=== PATIENT | female | born 1965 | race Caucasian/White ===

== ENCOUNTER → 2018-06-20 | Outpatient (CLI) | payer OTHER ==
[~2018-06-20] MED LIST: Curcumin1 GM PO; KRILL OIL500 MG PO; [UNRECOGNIZED DRUG - OTHER] PO
[2018-06-20 12:40] LABS: BASOPHILS ABSOLUTE AUTO 0.03 K/mm3 (0.00-0.23); BASOPHILS PERCENT AUTO 1 % (0-2); EOSINOPHILS ABSOLUTE AUTO 0.04 K/mm3 (0.00-0.68); EOSINOPHILS PERCENT AUTO 1 % (0-6); Hematocrit 40.6 % (33.0-51.0); Hemoglobin 13.6 g/dL (11.5-16.0); IMMATURE GRAN ABSOLUTE AUTO 0.01 K/mm3 (0.00-0.10); IMMATURE GRAN PERCENT AUTO 0 % (0-1); LYMPHOCYTES ABSOLUTE AUTO 0.53 K/mm3 (0.84-5.20); LYMPHOCYTES PERCENT AUTO 17 % (21-46); MONOCYTES ABSOLUTE AUTO 0.32 K/mm3 (0.16-1.47); MONOCYTES PERCENT AUTO 11 % (4-13); Mean Corpuscular HGB 33.2 pg (26.0-34.0); Mean Corpuscular HGB Conc 33.5 g/dL (31.5-36.5); Mean Corpuscular Volume 99 fL (80-100); Mean Platelet Volume 9.9 fL (9.1-12.4); NEUTROPHILS ABSOLUTE AUTO 2.11 K/mm3 (1.96-9.15); NEUTROPHILS PERCENT AUTO 70 % (41-73); Platelet Count 229 K/mm3 (150-400); RDW Coefficient Variation 13.1 % (11.7-14.2); RDW Standard Deviation 47.5 fL (35.1-46.3); White Blood Cell Count 3.04 K/mm3 (4.00-11.30)
[2018-06-20 13:06] LABS: Alanine Aminotransfer (ALT/SGP 61 U/L (12-78); Albumin, Blood 3.8 g/dL (3.4-5.0); Albumin/Globulin Ratio 1.1 (0.8-1.8); Alk Phos 179 U/L (50-136); Amylase, Blood 46 U/L (25-115); Anion Gap 9 mmol/L (6-16); Aspartate Aminotrans (AST/SGOT 63 U/L (12-37); Bilirubin, Total 0.6 mg/dL (0.1-1.0); Blood Urea Nitrogen 8 mg/dL (8-24); Bun/Creatinine Ratio 12.4 (12.0-20.0); CO2, Blood 26 mmol/L (21-32); Calcium, Blood 9.1 mg/dL (8.5-10.1); Chloride, Blood 105 mmol/L (98-108); Creatinine, Blood 0.65 mg/dL (0.40-1.00); Globulin, Blood 3.4 g/dL (2.2-4.0); Glomerular Filtration Rate >60 (60-); Glucose, Blood 91 mg/dL (70-99); Sodium, Blood 140 mmol/L (136-145); Total Protein, Blood 7.2 g/dL (6.4-8.2)
== END ==
LOC: LAB 12:22 → LAB SHORT 12:22
DX: Z13.0 Encounter for screening for diseases of the blood and blood-forming organs and certain disorders involving the immune mechanism (principal); Z13.1 Encounter for screening for diabetes mellitus; R10.12 Left upper quadrant pain
CPT/HCPCS: 80053; 82150; 83690; 85025

== ENCOUNTER 2018-08-04 12:14 | Emergency (ER) | payer SELFPAY ==
[~2018-08-04] VITALS: Ht 162.6 cm; Wt 80.3 kg
[2018-08-04 12:46] LABS: BASOPHILS ABSOLUTE AUTO 0.03 K/mm3 (0.00-0.23); BASOPHILS PERCENT AUTO 0 % (0-2); EOSINOPHILS ABSOLUTE AUTO 0.01 K/mm3 (0.00-0.68); EOSINOPHILS PERCENT AUTO 0 % (0-6); Hematocrit 38.6 % (33.0-51.0); Hemoglobin 13.1 g/dL (11.5-16.0); IMMATURE GRAN ABSOLUTE AUTO 0.04 K/mm3 (0.00-0.10); IMMATURE GRAN PERCENT AUTO 1 % (0-1); LYMPHOCYTES ABSOLUTE AUTO 0.73 K/mm3 (0.84-5.20); LYMPHOCYTES PERCENT AUTO 11 % (21-46); MONOCYTES ABSOLUTE AUTO 0.63 K/mm3 (0.16-1.47); MONOCYTES PERCENT AUTO 9 % (4-13); Mean Corpuscular HGB 33.2 pg (26.0-34.0); Mean Corpuscular HGB Conc 33.9 g/dL (31.5-36.5); Mean Corpuscular Volume 98 fL (80-100); Mean Platelet Volume 9.1 fL (9.1-12.4); NEUTROPHILS ABSOLUTE AUTO 5.36 K/mm3 (1.96-9.15); NEUTROPHILS PERCENT AUTO 79 % (41-73); Platelet Count 266 K/mm3 (150-400); RDW Coefficient Variation 12.5 % (11.7-14.2); RDW Standard Deviation 45.1 fL (35.1-46.3); Red Blood Cell Count 3.94 M/mm3 (3.80-5.20)
[2018-08-04 13:13] LABS: Alanine Aminotransfer (ALT/SGP 53 U/L (12-78); Albumin, Blood 3.7 g/dL (3.4-5.0); Albumin/Globulin Ratio 1.1 (0.8-1.8); Alk Phos 306 U/L (50-136); Anion Gap 14 mmol/L (6-16); Aspartate Aminotrans (AST/SGOT 86 U/L (12-37); Bilirubin, Total 1.4 mg/dL (0.1-1.0); Blood Urea Nitrogen 11 mg/dL (8-24); CO2, Blood 23 mmol/L (21-32); Calcium, Blood 9.2 mg/dL (8.5-10.1); Chloride, Blood 102 mmol/L (98-108); Globulin, Blood 3.5 g/dL (2.2-4.0); Glomerular Filtration Rate >60 (60-); Glucose, Blood 88 mg/dL (70-99); Potassium, Blood 3.7 mmol/L (3.5-5.5); Sodium, Blood 139 mmol/L (136-145); Total Protein, Blood 7.2 g/dL (6.4-8.2); Troponin I <0.015 ng/mL (0.000-0.040)
[2018-08-04] MEDS ORDERED: CYCL10 PO (15:28)
[2018-08-04 16:58] LABS: Source, Urine Clean Catch
[2018-08-04 17:20] LABS: Bilirubin, Urine Neg (Neg); Blood, Urine Neg (Neg); Glucose Qualitative, Urine Neg (Neg); Ketones, Urine 2+ (Neg); Leukocyte Esterase, Urine Neg (Neg); Nitrite, Urine Neg (Neg); Protein, Urine Neg (Neg); Urobilinogen, Urine 1+ (Normal)
[2018-08-04 17:32] LABS: Color, Urine Yellow (P-Yellow)
[2018-08-04 17:33] LABS: Appearance, Urine Clear (Clear)
== END 2018-08-04 18:35 | disposition home or self-care (01) ==
LOC: ER 12:14
PROVIDERS: Emergency Medicine
DX: R10.13 Epigastric pain (principal); R55 Syncope and collapse; M54.5 Low back pain; Z88.1 Allergy status to other antibiotic agents; Z88.5 Allergy status to narcotic agent; Z88.6 Allergy status to analgesic agent; Z88.8 Allergy status to other drugs, medicaments and biological substances
CPT/HCPCS: 36415; 72100; 76705; 80053; 81003; 84484; 85025; 93005; 93010; 96361; 96374; 99284-25; J1885; J7030

== ENCOUNTER → 2019-03-07 | Outpatient (CLI) | payer OTHER ==
[~2019-03-07] MED LIST changes: +CYCL10 PO; +LETR2.5; +Norco 5-325 Ta1 EACH PO; +OXYC10ER PO
[2019-03-07 10:54] LABS: Alanine Aminotransfer (ALT/SGP 109 U/L (12-78); Albumin, Blood 3.9 g/dL (3.4-5.0); Albumin/Globulin Ratio 1.3 (0.8-1.8); Alk Phos 149 U/L (50-136); Anion Gap 8 mmol/L (6-16); Aspartate Aminotrans (AST/SGOT 127 U/L (12-37); Bilirubin, Total 0.6 mg/dL (0.1-1.0); Blood Urea Nitrogen 7 mg/dL (8-24); Bun/Creatinine Ratio 14.6 (12.0-20.0); CO2, Blood 26 mmol/L (21-32); Calcium, Blood 8.4 mg/dL (8.5-10.1); Chloride, Blood 108 mmol/L (98-108); Creatinine, Blood 0.48 mg/dL (0.40-1.00); Globulin, Blood 2.9 g/dL (2.2-4.0); Glomerular Filtration Rate >60 (60-); Glucose, Blood 89 mg/dL (70-99); Sodium, Blood 142 mmol/L (136-145); Total Protein, Blood 6.8 g/dL (6.4-8.2)
== END | disposition home or self-care (01) ==
LOC: LAB SHORT 10:17 → LAB 10:17
PROVIDERS: Internal Medicine Hematology & Oncology
DX: C50.412 Malignant neoplasm of upper-outer quadrant of left female breast (principal)
CPT/HCPCS: 80053

== ENCOUNTER → 2019-04-07 | Outpatient (CLI) | payer OTHER ==
[2019-04-07 11:13] LABS: Alanine Aminotransfer (ALT/SGP 157 U/L (12-78); Albumin, Blood 3.7 g/dL (3.4-5.0); Albumin/Globulin Ratio 1.3 (0.8-1.8); Alk Phos 137 U/L (50-136); Anion Gap 11 mmol/L (6-16); Aspartate Aminotrans (AST/SGOT 161 U/L (12-37); Bilirubin, Total 0.6 mg/dL (0.1-1.0); Blood Urea Nitrogen 6 mg/dL (8-24); Bun/Creatinine Ratio 13.4 (12.0-20.0); CO2, Blood 25 mmol/L (21-32); Chloride, Blood 107 mmol/L (98-108); Creatinine, Blood 0.45 mg/dL (0.40-1.00); Globulin, Blood 2.9 g/dL (2.2-4.0); Glomerular Filtration Rate >60 (60-); Glucose, Blood 82 mg/dL (70-99); Potassium, Blood 3.8 mmol/L (3.5-5.5); Sodium, Blood 143 mmol/L (136-145); Total Protein, Blood 6.6 g/dL (6.4-8.2)
== END | disposition home or self-care (01) ==
LOC: LAB 09:00 → LAB SHORT 09:00
PROVIDERS: Internal Medicine Hematology & Oncology
DX: C50.919 Malignant neoplasm of unspecified site of unspecified female breast (principal)
CPT/HCPCS: 80053

== ENCOUNTER 2019-04-19 03:10 | Observation (INO) | payer OTHER ==
[~2019-04-19] VITALS: Ht 162.6 cm; Wt 82.0 kg
[~2019-04-19 03:10] MED LIST changes: -LETR2.5; +LETR2.5 PO
[2019-04-19] MEDS ORDERED: [UNRECOGNIZED DRUG - OTHER] (03:34)
[2019-04-19 04:02] LABS: Hematocrit 50.7 % (33.0-51.0); Hemoglobin 16.7 g/dL (11.5-16.0); Mean Corpuscular HGB 32.7 pg (26.0-34.0); Mean Corpuscular HGB Conc 32.9 g/dL (31.5-36.5); Mean Corpuscular Volume 99 fL (80-100); Mean Platelet Volume 9.7 fL (9.1-12.4); Platelet Count 271 K/mm3 (150-400); RDW Coefficient Variation 12.7 % (11.7-14.2); RDW Standard Deviation 46.5 fL (35.1-46.3); Red Blood Cell Count 5.11 M/mm3 (3.80-5.20); White Blood Cell Count 9.17 K/mm3 (4.00-11.30)
[2019-04-19 04:15] LABS: Alanine Aminotransfer (ALT/SGP 120 U/L (12-78); Albumin, Blood 4.4 g/dL (3.4-5.0); Alk Phos 130 U/L (50-136); Anion Gap 20 mmol/L (6-16); Aspartate Aminotrans (AST/SGOT 87 U/L (12-37); Bilirubin, Total 2.1 mg/dL (0.1-1.0); Blood Urea Nitrogen 20 mg/dL (8-24); Bun/Creatinine Ratio 25.1 (12.0-20.0); CO2, Blood 19 mmol/L (21-32); Chloride, Blood 98 mmol/L (98-108); Globulin, Blood 4.2 g/dL (2.2-4.0); Glomerular Filtration Rate >60 (60-); Glucose, Blood 212 mg/dL (70-99); Potassium, Blood 3.3 mmol/L (3.5-5.5); Sodium, Blood 137 mmol/L (136-145); Total Protein, Blood 8.6 g/dL (6.4-8.2)
[2019-04-19 04:21] LABS: BAND PERCENT MAN 12 % (0-8); BASOPHILS PERCENT MAN 0 % (0-2); EOSINOPHILS PERCENT MAN 0 % (0-6); LYMPHOCYTES ABSOLUTE MAN 0.36 K/mm3 (0.84-5.20); LYMPHOCYTES PERCENT MAN 4 % (21-46); MONOCYTES ABSOLUTE MAN 0.27 K/mm3 (0.16-1.47); MONOCYTES PERCENT MAN 3 % (4-13); NEUTROPHILS ABSOLUTE MAN 8.52 K/mm3 (1.96-9.15); SEG NEUTROPHILS PERCENT MAN 81 % (41-73); TOTAL CELLS COUNTED 100
[2019-04-19 05:52] LABS: Base Excess Venous 3.8 mmol/L; Bicarbonate Venous 26.5 mmol/L (24.0-30.0); PCO2 Venous 40.6 mmHg (38-42); PO2 Venous 33.8 mmHg (38-42); pH Blood Venous 7.45 (7.34-7.37)
[2019-04-19 07:50] LABS: International Normalized Ratio 0.94
[2019-04-19 09:30] LABS: Source, Urine Clean Catch
[2019-04-19 09:39] LABS: Bilirubin, Urine Neg (Neg); Blood, Urine 1+ (Neg); Glucose Qualitative, Urine Neg (Neg); Ketones, Urine 4+ (Neg); Leukocyte Esterase, Urine 2+ (Neg); Nitrite, Urine Neg (Neg); Protein, Urine 1+ (Neg); Specific Gravity, Urine 1.015 (1.003-1.022); Urobilinogen, Urine 2+ (Normal); pH, Urine 6.5 (5.0-8.0)
[2019-04-19 09:44] LABS: Appearance, Urine Clear (Clear); Color, Urine Yellow (P-Yellow)
[2019-04-19 09:46] LABS: Bacteria Few /hpf; Red Blood Cells, Urine 0-2 /hpf (0-2); Squamous Epithelial Cells Few /hpf (Few)
[2019-04-19] MEDS ORDERED: [UNRECOGNIZED DRUG - OTHER] PO (11:55)
[2019-04-19] MEDS ORDERED: MEGARED OMEGA-1 EAC2 PO (11:55)
[2019-04-19] MEDS ORDERED: TUMERIC PO (11:56)
[2019-04-19] MEDS ORDERED: ZOLEDRONIC ACID4 MG IV (12:03)
--- NOTE | 2019-04-19 15:18 | NUR ---
NOTIFIED DR. TAY PT C/O NAUSEA AND COUGH AND PT DOES NOT HAVE ANY MEDS FOR SYMPTOMS. DR. TAY SAID HE WILL PUT IN ORDERS. NO NEW ORDERS AT THIS TIME.
--- NOTE | 2019-04-19 17:36 | NUR ---
NOTIFIED DR. TAY PT REQUESTING TO BE DNR. NOTIFIED DR. TAY PT REPORTING N/V/D. DR. TAY SAID OK TO SWITCH IV ZOFRAN TO Q4H PRN. NOTIFIED DR. TAY GI WILL BE COMING IN TOMORROW AM. DR. TAY SAID TO MAKE PT CLEAR LIQUID DIET FOR DINNER AND NPO AFTER MIDNIGHT FOR POSSIBLE PROCEDURE TOMORROW. DR. TAY SAID TO ORDER NORMAL SALINE AT 75ML/HR. NO OTHER NEW ORDERS AT THIS TIME.
--- NOTE | 2019-04-19 18:54 | NUR ---
SHIFT SUMMARY- PT NEW ADMIT THIS AFTERNOON. PT AXO X4. DENIES PAIN. PT C/O NAUSEA. MEDS GIVEN PER EMAR. DENIES SOB. RESP E/U ON RA. PT TO BE NPO AFTER MIDNIGHT FOR POSSIBLE PROCEDURE TOMORROW. CIWA SCORE OF 4 THIS PM. INDEPENDENT IN THE ROOM. NO OTHER SIGNIFICANT CHANGES THIS SHIFT.
[2019-04-20 05:16] LABS: BASOPHILS ABSOLUTE AUTO 0.02 K/mm3 (0.00-0.23); BASOPHILS PERCENT AUTO 1 % (0-2); EOSINOPHILS ABSOLUTE AUTO 0.02 K/mm3 (0.00-0.68); EOSINOPHILS PERCENT AUTO 1 % (0-6); Hematocrit 37.6 % (33.0-51.0); Hemoglobin 12.3 g/dL (11.5-16.0); IMMATURE GRAN ABSOLUTE AUTO 0.02 K/mm3 (0.00-0.10); IMMATURE GRAN PERCENT AUTO 1 % (0-1); LYMPHOCYTES ABSOLUTE AUTO 0.62 K/mm3 (0.84-5.20); LYMPHOCYTES PERCENT AUTO 15 % (21-46); MONOCYTES ABSOLUTE AUTO 0.57 K/mm3 (0.16-1.47); MONOCYTES PERCENT AUTO 14 % (4-13); Mean Corpuscular HGB 33.1 pg (26.0-34.0); Mean Corpuscular HGB Conc 32.7 g/dL (31.5-36.5); Mean Corpuscular Volume 101 fL (80-100); Mean Platelet Volume 9.4 fL (9.1-12.4); NEUTROPHILS ABSOLUTE AUTO 2.78 K/mm3 (1.96-9.15); NEUTROPHILS PERCENT AUTO 69 % (41-73); Platelet Count 139 K/mm3 (150-400); RDW Coefficient Variation 12.3 % (11.7-14.2); RDW Standard Deviation 46.1 fL (35.1-46.3); Red Blood Cell Count 3.72 M/mm3 (3.80-5.20); White Blood Cell Count 4.03 K/mm3 (4.00-11.30)
[2019-04-20 05:52] LABS: Alanine Aminotransfer (ALT/SGP 79 U/L (12-78); Albumin/Globulin Ratio 1.2 (0.8-1.8); Alk Phos 75 U/L (50-136); Anion Gap 9 mmol/L (6-16); Aspartate Aminotrans (AST/SGOT 82 U/L (12-37); Bilirubin, Total 1.3 mg/dL (0.1-1.0); Blood Urea Nitrogen 7 mg/dL (8-24); Bun/Creatinine Ratio 14.1 (12.0-20.0); CO2, Blood 23 mmol/L (21-32); Calcium, Blood 7.2 mg/dL (8.5-10.1); Chloride, Blood 110 mmol/L (98-108); Globulin, Blood 2.6 g/dL (2.2-4.0); Glomerular Filtration Rate >60 (60-); Glucose, Blood 101 mg/dL (70-99); Potassium, Blood 2.8 mmol/L (3.5-5.5); Sodium, Blood 142 mmol/L (136-145)
[2019-04-20 05:56] LABS: Total Protein, Blood 5.6 g/dL (6.4-8.2)
--- NOTE | 2019-04-20 06:25 | NUR ---
SHIFT SUMMARY NO ACUTE CHANGES TO PRESENT THIS SHIFT. RECEIVED REPORT, PT ADMITTED FOR COFFEE GROUND EMESIS. NO EMESIS REPORTED TO PRESENT ON NOC SHIFT. PT MEDICATED SEVERAL TIMES FOR NAUSEA. PRESENTLY NPO FOR POSSIBLE SCOPE THIS AM. PT HAS BEEN INDEPENDENT IN AND TO [facility]. HX OF LONG TIME ALCOHOL ABUSE. PT HAS DENIED SX OF ALCOHOL W/D TO PRESENT. US SHOWING FATTY LIVER. HX OF METASTATIC BREAST CA; CURRENTLY RECEIVING TX. NO C/O PAIN. HAS DENIED NEEDS. PLEASANT AND CO-OP WITH CARE. CALL LT IN REACH.
--- NOTE | 2019-04-20 11:50 | NUR ---
NOTIFIED DR. TAY PT REQUESTING TYLENOL BE CHANGED TO Q4H PRN SO SHE CAN HAVE A DOSE BEFORE SHE BECOMES NPO THIS AFTERNOON. DR. TAY SAID OK TO SWITCH TYLENOL TO Q4H PRN. NO OTHER NEW ORDERS AT THIS TIME.
--- NOTE | 2019-04-20 14:15 | NUR ---
NOTIFIED DR. TAY NURSE IN DAY SURGERY REPORTS PT'S POTASSIUM NEEDS TO BE REDRAWN BEFORE PROCEDURE. DR. TAY SAID OK TO ORDER REDRAW OF POTASSIUM AND TO D/C 1700 ORDER. NO OTHER NEW ORDERS AT THIS TIME.
--- NOTE | 2019-04-20 17:03 | NUR ---
04/20/19 1709 Chuckie Matthew 1208 PATIENT DETERMINED TO BE ASA APPROPRIATE FOR PROPOFOL SEDATION PRIOR TO START OF PROCEDURE BY .PATIENT CONFIRMS NPO STATUS AND AGREES WITH SCHEDULED PROCEDURE.MONITOR INTACT WITH CONTINUOUS PULSE OXIMETRY AND INTERMITTENT BP.O2 VIA N/C INTACT THROUGHOUT SEDATION/PROCEDURE.Bite Block Placed
--- NOTE | 2019-04-20 18:56 | NUR ---
SHIFT SUMMARY- PT C/O ABD PAIN AND NAUSEA. MEDS GIVEN PER EMAR. DENIES SOB. RESP E/U ON RA. PT WENT FOR EGD THIS AFTERNOON. PT TOLERATING CLEAR LIQUIDS THIS PM. CIWA SCORE OF 3 THIS PM. INDEPENDENT IN THE ROOM. NO OTHER SIGNIFICANT CHANGES THIS SHIFT.
[2019-04-21 03:10] LABS: HBSAG SCREEN Negative (Negative); HEP A AB, IGM Negative (Negative); HEP B CORE AB, IGM Negative (Negative); HEP B CORE AB, TOT Negative (Negative); HEP C VIRUS AB <0.1 (0.0-0.9)
[2019-04-21 05:33] LABS: Hematocrit 36.8 % (33.0-51.0); Hemoglobin 12.1 g/dL (11.5-16.0); Mean Corpuscular HGB 32.8 pg (26.0-34.0); Mean Corpuscular HGB Conc 32.9 g/dL (31.5-36.5); Mean Corpuscular Volume 100 fL (80-100); Mean Platelet Volume 9.2 fL (9.1-12.4); Platelet Count 147 K/mm3 (150-400); Red Blood Cell Count 3.69 M/mm3 (3.80-5.20)
[2019-04-21 05:52] LABS: Anion Gap 6 mmol/L (6-16); Blood Urea Nitrogen 3 mg/dL (8-24); Bun/Creatinine Ratio 5.3 (12.0-20.0); CO2, Blood 28 mmol/L (21-32); Calcium, Blood 7.3 mg/dL (8.5-10.1); Chloride, Blood 110 mmol/L (98-108); Creatinine, Blood 0.57 mg/dL (0.40-1.00); Glomerular Filtration Rate >60 (60-); Glucose, Blood 108 mg/dL (70-99); Potassium, Blood 2.9 mmol/L (3.5-5.5); Sodium, Blood 144 mmol/L (136-145)
--- NOTE | 2019-04-21 06:17 | NUR ---
SHIFT SUMMARY PT HAS SLEPT WELL T/O SHIFT. PT HAD NO ISSUES NOTED AND HAD NO COMPLAINTS. PT IS EAGER TO GO HOME. PT IS CURRENTLY AWAKE WATCHING TV AND BREATHING EASY. CALL LIGHT IN REACH.
[2019-04-21] MEDS ORDERED: PANT20 PO (11:03)
[2019-04-21] MEDS ORDERED: Carafate1 GM/10 ML PO (11:05)
--- NOTE | 2019-04-21 11:31 | NUR ---
PATIENT D/C'D TO HOME WITH FRIEND. RX MEDICATIONS FAXED TO [email or web address]. D/C INSTRUCTIONS AND EDUCATION DISCUSSED WITH PATIENT AND COPY PROVIDED. PATIENT DENIES ANY FURHTER QUESTIONS OR CONCERNS.
== END 2019-04-21 11:34 | disposition home or self-care (01) ==
LOC: ER 03:10 → ERHOLD 03:11 → MEDS 03:11 → ENPENDDIS 04-21 10:43 → MEDS 04-21 11:34
PROVIDERS: Emergency Medicine; Internal Medicine; Student in an Organized Health Care Education/Training Program; ADMIT Hospitalist
PROC: 0DB68ZX Excision of Stomach, Via Natural or Artificial Opening Endoscopic, Diagnostic (ICD-10-PCS; principal; 2019-04-20 08:30)
DX: K22.11 Ulcer of esophagus with bleeding (principal); K44.9 Diaphragmatic hernia without obstruction or gangrene; K70.0 Alcoholic fatty liver; F10.10 Alcohol abuse, uncomplicated; C50.919 Malignant neoplasm of unspecified site of unspecified female breast; C79.9 Secondary malignant neoplasm of unspecified site; E87.2 Acidosis; R73.9 Hyperglycemia, unspecified; R94.5 Abnormal results of liver function studies; E66.9 Obesity, unspecified; Z88.1 Allergy status to other antibiotic agents; Z88.5 Allergy status to narcotic agent; Z79.899 Other long term (current) drug therapy
CPT/HCPCS: 36415; 76705; 80048; 80053; 80074; 81001; 82803; 83036; 83690; 84132; 85025; 85027; 85610; 86317; 86704; 86708; 86803; 87086; 87340; 88305; 88342; 96361; 96365; 96366; 96375; 96376; 99285-25; A9270; C9113; G0378; G0480; J2405; J2704; J3480; J7030; J7120

== ENCOUNTER → 2019-06-20 | Outpatient (CLI) | payer OTHER ==
[~2019-06-20] MED LIST changes: +Carafate1 GM/10 ML PO; +MEGARED OMEGA-1 EAC2 PO; +PANT20 PO; +TUMERIC PO; +ZOLEDRONIC ACID4 MG IV; +[UNRECOGNIZED DRUG - OTHER]; +[UNRECOGNIZED DRUG - OTHER] PO
[2019-06-20 10:05] LABS: Alanine Aminotransfer (ALT/SGP 99 U/L (12-78); Albumin/Globulin Ratio 1.4 (0.8-1.8); Alk Phos 110 U/L (50-136); Anion Gap 12 mmol/L (6-16); Aspartate Aminotrans (AST/SGOT 97 U/L (12-37); Bilirubin, Total 0.8 mg/dL (0.1-1.0); Blood Urea Nitrogen 6 mg/dL (8-24); Bun/Creatinine Ratio 16.2 (12.0-20.0); CO2, Blood 25 mmol/L (21-32); Calcium, Blood 8.5 mg/dL (8.5-10.1); Chloride, Blood 108 mmol/L (98-108); Creatinine, Blood 0.37 mg/dL (0.40-1.00); Globulin, Blood 2.9 g/dL (2.2-4.0); Glomerular Filtration Rate >60 (60-); Glucose, Blood 91 mg/dL (70-99); Potassium, Blood 3.9 mmol/L (3.5-5.5); Sodium, Blood 145 mmol/L (136-145); Total Protein, Blood 6.9 g/dL (6.4-8.2)
== END | disposition home or self-care (01) ==
LOC: LAB SHORT 09:48 → LAB 09:48
PROVIDERS: Internal Medicine Hematology & Oncology
DX: C50.919 Malignant neoplasm of unspecified site of unspecified female breast (principal)
CPT/HCPCS: 80053

== ENCOUNTER → 2019-07-18 | Outpatient (CLI) | payer OTHER ==
[2019-07-18 10:49] LABS: Alanine Aminotransfer (ALT/SGP 154 U/L (12-78); Albumin/Globulin Ratio 1.3 (0.8-1.8); Alk Phos 125 U/L (50-136); Anion Gap 13 mmol/L (6-16); Aspartate Aminotrans (AST/SGOT 218 U/L (12-37); Bilirubin, Total 0.6 mg/dL (0.1-1.0); Blood Urea Nitrogen 6 mg/dL (8-24); Bun/Creatinine Ratio 14.4 (12.0-20.0); CO2, Blood 24 mmol/L (21-32); Calcium, Blood 8.4 mg/dL (8.5-10.1); Chloride, Blood 103 mmol/L (98-108); Creatinine, Blood 0.42 mg/dL (0.40-1.00); Glomerular Filtration Rate >60 (60-); Glucose, Blood 86 mg/dL (70-99); Potassium, Blood 3.7 mmol/L (3.5-5.5); Sodium, Blood 140 mmol/L (136-145)
== END | disposition home or self-care (01) ==
LOC: LAB SHORT 10:04 → LAB 10:04
PROVIDERS: Internal Medicine Hematology & Oncology
DX: C50.412 Malignant neoplasm of upper-outer quadrant of left female breast (principal)
CPT/HCPCS: 80053

== ENCOUNTER → 2019-08-16 | Outpatient (CLI) | payer OTHER ==
[2019-08-16 10:19] LABS: Alanine Aminotransfer (ALT/SGP 158 U/L (12-78); Albumin, Blood 3.9 g/dL (3.4-5.0); Albumin/Globulin Ratio 1.3 (0.8-1.8); Alk Phos 109 U/L (50-136); Anion Gap 10 mmol/L (6-16); Aspartate Aminotrans (AST/SGOT 238 U/L (12-37); Bilirubin, Total 1.1 mg/dL (0.1-1.0); Blood Urea Nitrogen 6 mg/dL (8-24); CO2, Blood 24 mmol/L (21-32); Calcium, Blood 8.7 mg/dL (8.5-10.1); Chloride, Blood 105 mmol/L (98-108); Globulin, Blood 3.1 g/dL (2.2-4.0); Glomerular Filtration Rate >60 (60-); Glucose, Blood 120 mg/dL (70-99); Potassium, Blood 3.7 mmol/L (3.5-5.5); Sodium, Blood 139 mmol/L (136-145)
== END | disposition home or self-care (01) ==
LOC: LAB 09:59 → LAB SHORT 09:59
PROVIDERS: Internal Medicine Hematology & Oncology
DX: C79.51 Secondary malignant neoplasm of bone (principal)
CPT/HCPCS: 80053

== ENCOUNTER → 2019-08-16 | Outpatient (CLI) | payer OTHER ==
[2019-08-17 15:15] LABS: Performing Lab SYMBIODX; Test Name TISSUE BLOCK
[2019-08-28 08:33] LABS: Result SEE PATHOTH RESULTS
== END | disposition home or self-care (01) ==
LOC: LAB SHORT 16:13 → LAB 16:13
PROVIDERS: Internal Medicine Hematology & Oncology
DX: C50.912 Malignant neoplasm of unspecified site of left female breast (principal)
CPT/HCPCS: 88374

== ENCOUNTER → 2019-09-20 | Outpatient (CLI) | payer OTHER ==
[2019-09-20 10:56] LABS: Alanine Aminotransfer (ALT/SGP 146 U/L (12-78); Albumin, Blood 4.1 g/dL (3.4-5.0); Albumin/Globulin Ratio 1.2 (0.8-1.8); Alk Phos 116 U/L (50-136); Anion Gap 11 mmol/L (6-16); Aspartate Aminotrans (AST/SGOT 207 U/L (12-37); Bilirubin, Total 1.3 mg/dL (0.1-1.0); Blood Urea Nitrogen 7 mg/dL (8-24); Bun/Creatinine Ratio 15.5 (12.0-20.0); CO2, Blood 25 mmol/L (21-32); Calcium, Blood 9.5 mg/dL (8.5-10.1); Chloride, Blood 103 mmol/L (98-108); Creatinine, Blood 0.45 mg/dL (0.40-1.00); Globulin, Blood 3.3 g/dL (2.2-4.0); Glomerular Filtration Rate >60 (60-); Glucose, Blood 101 mg/dL (70-99); Sodium, Blood 139 mmol/L (136-145); Total Protein, Blood 7.4 g/dL (6.4-8.2)
== END | disposition home or self-care (01) ==
LOC: LAB SHORT 10:29 → LAB 13:42
PROVIDERS: Internal Medicine Hematology & Oncology
DX: C79.51 Secondary malignant neoplasm of bone (principal)
CPT/HCPCS: 80053

== ENCOUNTER → 2019-10-18 | Outpatient (CLI) | payer OTHER ==
[2019-10-18 11:44] LABS: BASOPHILS ABSOLUTE AUTO 0.03 K/mm3 (0.00-0.23); BASOPHILS PERCENT AUTO 1 % (0-2); EOSINOPHILS ABSOLUTE AUTO 0.02 K/mm3 (0.00-0.68); EOSINOPHILS PERCENT AUTO 0 % (0-6); Hematocrit 42.6 % (33.0-51.0); Hemoglobin 13.7 g/dL (11.5-16.0); IMMATURE GRAN ABSOLUTE AUTO 0.02 K/mm3 (0.00-0.10); IMMATURE GRAN PERCENT AUTO 0 % (0-1); LYMPHOCYTES ABSOLUTE AUTO 0.53 K/mm3 (0.84-5.20); LYMPHOCYTES PERCENT AUTO 10 % (21-46); MONOCYTES ABSOLUTE AUTO 0.49 K/mm3 (0.16-1.47); MONOCYTES PERCENT AUTO 10 % (4-13); Mean Corpuscular HGB 34.3 pg (26.0-34.0); Mean Corpuscular HGB Conc 32.2 g/dL (31.5-36.5); Mean Corpuscular Volume 107 fL (80-100); Mean Platelet Volume 9.2 fL (9.1-12.4); NEUTROPHILS ABSOLUTE AUTO 4.03 K/mm3 (1.96-9.15); NEUTROPHILS PERCENT AUTO 79 % (41-73); Platelet Count 156 K/mm3 (150-400); RDW Standard Deviation 55.8 fL (35.1-46.3); Red Blood Cell Count 3.99 M/mm3 (3.80-5.20); White Blood Cell Count 5.12 K/mm3 (4.00-11.30)
[2019-10-18 12:01] LABS: Alanine Aminotransfer (ALT/SGP 110 U/L (12-78); Albumin, Blood 3.6 g/dL (3.4-5.0); Albumin/Globulin Ratio 1.1 (0.8-1.8); Alk Phos 146 U/L (50-136); Anion Gap 12 mmol/L (6-16); Aspartate Aminotrans (AST/SGOT 205 U/L (12-37); Bilirubin, Total 1.1 mg/dL (0.1-1.0); Blood Urea Nitrogen 5 mg/dL (8-24); Bun/Creatinine Ratio 13.1 (12.0-20.0); CO2, Blood 25 mmol/L (21-32); Calcium, Blood 8.1 mg/dL (8.5-10.1); Chloride, Blood 103 mmol/L (98-108); Creatinine, Blood 0.38 mg/dL (0.40-1.00); Globulin, Blood 3.3 g/dL (2.2-4.0); Glomerular Filtration Rate >60 (60-); Glucose, Blood 84 mg/dL (70-99); Potassium, Blood 3.6 mmol/L (3.5-5.5); Sodium, Blood 140 mmol/L (136-145); Total Protein, Blood 6.9 g/dL (6.4-8.2)
== END | disposition home or self-care (01) ==
LOC: LAB 11:18 → LAB SHORT 11:18
PROVIDERS: Internal Medicine Hematology & Oncology
DX: C79.51 Secondary malignant neoplasm of bone (principal)
CPT/HCPCS: 80053; 85025

== ENCOUNTER → 2019-11-15 | Outpatient (CLI) | payer OTHER ==
[2019-11-15 11:10] LABS: Alanine Aminotransfer (ALT/SGP 136 U/L (12-78); Albumin, Blood 3.8 g/dL (3.4-5.0); Albumin/Globulin Ratio 1.2 (0.8-1.8); Alk Phos 119 U/L (50-136); Anion Gap 14 mmol/L (6-16); Aspartate Aminotrans (AST/SGOT 290 U/L (12-37); Bilirubin, Total 1.4 mg/dL (0.1-1.0); Blood Urea Nitrogen 5 mg/dL (8-24); Bun/Creatinine Ratio 11.7 (12.0-20.0); CO2, Blood 23 mmol/L (21-32); Calcium, Blood 8.3 mg/dL (8.5-10.1); Chloride, Blood 100 mmol/L (98-108); Creatinine, Blood 0.43 mg/dL (0.40-1.00); Globulin, Blood 3.2 g/dL (2.2-4.0); Glomerular Filtration Rate >60 (60-); Glucose, Blood 104 mg/dL (70-99); Potassium, Blood 3.4 mmol/L (3.5-5.5); Sodium, Blood 137 mmol/L (136-145)
== END | disposition home or self-care (01) ==
LOC: LAB 10:45 → LAB SHORT 10:45
PROVIDERS: Internal Medicine Hematology & Oncology
DX: C50.412 Malignant neoplasm of upper-outer quadrant of left female breast (principal); C79.51 Secondary malignant neoplasm of bone
CPT/HCPCS: 80053

== ENCOUNTER → 2019-12-13 | Outpatient (CLI) | payer OTHER ==
[2019-12-13 12:28] LABS: Alanine Aminotransfer (ALT/SGP 100 U/L (12-78); Albumin, Blood 3.8 g/dL (3.4-5.0); Albumin/Globulin Ratio 1.3 (0.8-1.8); Alk Phos 118 U/L (50-136); Anion Gap 8 mmol/L (6-16); Aspartate Aminotrans (AST/SGOT 127 U/L (12-37); Bilirubin, Total 1.2 mg/dL (0.1-1.0); Blood Urea Nitrogen 9 mg/dL (8-24); Bun/Creatinine Ratio 19.4 (12.0-20.0); CO2, Blood 27 mmol/L (21-32); Calcium, Blood 8.5 mg/dL (8.5-10.1); Chloride, Blood 104 mmol/L (98-108); Creatinine, Blood 0.46 mg/dL (0.40-1.00); Globulin, Blood 2.9 g/dL (2.2-4.0); Glomerular Filtration Rate >60 (60-); Glucose, Blood 111 mg/dL (70-99); Potassium, Blood 3.5 mmol/L (3.5-5.5); Sodium, Blood 139 mmol/L (136-145); Total Protein, Blood 6.7 g/dL (6.4-8.2)
== END | disposition home or self-care (01) ==
LOC: LAB SHORT 09:11 → LAB 09:11 → LAB SHORT 11:22
PROVIDERS: Internal Medicine Hematology & Oncology
DX: C50.919 Malignant neoplasm of unspecified site of unspecified female breast (principal); C79.51 Secondary malignant neoplasm of bone; M89.8X8 Other specified disorders of bone, other site
CPT/HCPCS: 80053; 86300

== ENCOUNTER → 2020-01-11 | Outpatient (CLI) | payer OTHER ==
[2020-01-11 11:11] LABS: Alanine Aminotransfer (ALT/SGP 78 U/L (12-78); Albumin, Blood 3.9 g/dL (3.4-5.0); Albumin/Globulin Ratio 1.3 (0.8-1.8); Alk Phos 137 U/L (50-136); Anion Gap 9 mmol/L (6-16); Aspartate Aminotrans (AST/SGOT 110 U/L (12-37); Bilirubin, Total 1.5 mg/dL (0.1-1.0); Blood Urea Nitrogen 7 mg/dL (8-24); Bun/Creatinine Ratio 14.1 (12.0-20.0); CO2, Blood 25 mmol/L (21-32); Chloride, Blood 104 mmol/L (98-108); Globulin, Blood 3.1 g/dL (2.2-4.0); Glomerular Filtration Rate >60 (60-); Glucose, Blood 113 mg/dL (70-99); Potassium, Blood 3.9 mmol/L (3.5-5.5); Sodium, Blood 138 mmol/L (136-145)
== END | disposition home or self-care (01) ==
LOC: LAB SHORT 10:45 → LAB 10:45
PROVIDERS: Internal Medicine Hematology & Oncology
DX: C50.412 Malignant neoplasm of upper-outer quadrant of left female breast (principal); C79.51 Secondary malignant neoplasm of bone; M89.8X0 Other specified disorders of bone, multiple sites
CPT/HCPCS: 80053; 86300

== ENCOUNTER → 2020-02-08 | Outpatient (CLI) | payer OTHER ==
[2020-02-08 13:01] LABS: Alanine Aminotransfer (ALT/SGP 97 U/L (12-78); Albumin, Blood 4.2 g/dL (3.4-5.0); Albumin/Globulin Ratio 1.4 (0.8-1.8); Alk Phos 115 U/L (50-136); Anion Gap 15 mmol/L (6-16); Aspartate Aminotrans (AST/SGOT 176 U/L (12-37); Bilirubin, Direct 0.4 mg/dL (0.0-0.3); Bilirubin, Indirect 0.6 mg/dL (0.1-0.7); Blood Urea Nitrogen 6 mg/dL (8-24); Bun/Creatinine Ratio 12.9 (12.0-20.0); CO2, Blood 23 mmol/L (21-32); Calcium, Blood 9.4 mg/dL (8.5-10.1); Chloride, Blood 103 mmol/L (98-108); Creatinine, Blood 0.47 mg/dL (0.40-1.00); Glomerular Filtration Rate >60 (60-); Glucose, Blood 96 mg/dL (70-99); Magnesium, Blood 1.8 mg/dL (1.6-2.4); Potassium, Blood 3.8 mmol/L (3.5-5.5); Sodium, Blood 141 mmol/L (136-145); Total Protein, Blood 7.2 g/dL (6.4-8.2)
== END | disposition home or self-care (01) ==
LOC: LAB 12:34 → LAB SHORT 12:34
PROVIDERS: Internal Medicine Hematology & Oncology
DX: C79.51 Secondary malignant neoplasm of bone (principal); C50.412 Malignant neoplasm of upper-outer quadrant of left female breast
CPT/HCPCS: 80053; 82248; 83735; 86300

== ENCOUNTER → 2020-02-23 | Outpatient (CLI) | payer OTHER ==
[2020-02-23 10:43] LABS: Alanine Aminotransfer (ALT/SGP 148 U/L (12-78); Albumin/Globulin Ratio 1.2 (0.8-1.8); Alk Phos 112 U/L (50-136); Anion Gap 12 mmol/L (6-16); Aspartate Aminotrans (AST/SGOT 167 U/L (12-37); Bilirubin, Total 1.2 mg/dL (0.1-1.0); Blood Urea Nitrogen 5 mg/dL (8-24); Bun/Creatinine Ratio 9.1 (12.0-20.0); CO2, Blood 26 mmol/L (21-32); Chloride, Blood 99 mmol/L (98-108); Creatinine, Blood 0.55 mg/dL (0.40-1.00); Globulin, Blood 3.2 g/dL (2.2-4.0); Glomerular Filtration Rate >60 (60-); Glucose, Blood 98 mg/dL (70-99); Potassium, Blood 3.4 mmol/L (3.5-5.5); Sodium, Blood 137 mmol/L (136-145); Total Protein, Blood 7.2 g/dL (6.4-8.2)
== END | disposition home or self-care (01) ==
LOC: LAB SHORT 09:10 → LAB 09:10
PROVIDERS: Internal Medicine Hematology & Oncology
DX: C79.51 Secondary malignant neoplasm of bone (principal)
CPT/HCPCS: 80053

== ENCOUNTER → 2020-03-22 | Outpatient (CLI) | payer OTHER ==
[2020-03-22 11:09] LABS: BASOPHILS ABSOLUTE AUTO 0.04 K/mm3 (0.00-0.23); BASOPHILS PERCENT AUTO 1 % (0-2); EOSINOPHILS PERCENT AUTO 3 % (0-6); Hematocrit 38.7 % (33.0-51.0); Hemoglobin 12.4 g/dL (11.5-16.0); IMMATURE GRAN PERCENT AUTO 0 % (0-1); LYMPHOCYTES ABSOLUTE AUTO 0.73 K/mm3 (0.84-5.20); LYMPHOCYTES PERCENT AUTO 21 % (21-46); MONOCYTES ABSOLUTE AUTO 0.22 K/mm3 (0.16-1.47); MONOCYTES PERCENT AUTO 6 % (4-13); Mean Corpuscular HGB 33.9 pg (26.0-34.0); Mean Corpuscular Volume 106 fL (80-100); Mean Platelet Volume 9.6 fL (9.1-12.4); NEUTROPHILS ABSOLUTE AUTO 2.33 K/mm3 (1.96-9.15); NEUTROPHILS PERCENT AUTO 68 % (41-73); Platelet Count 274 K/mm3 (150-400); RDW Coefficient Variation 12.6 % (11.7-14.2); Red Blood Cell Count 3.66 M/mm3 (3.80-5.20); White Blood Cell Count 3.42 K/mm3 (4.00-11.30)
[2020-03-22 11:21] LABS: Alanine Aminotransfer (ALT/SGP 31 U/L (12-78); Albumin, Blood 3.6 g/dL (3.4-5.0); Albumin/Globulin Ratio 1.3 (0.8-1.8); Alk Phos 109 U/L (50-136); Anion Gap 7 mmol/L (6-16); Aspartate Aminotrans (AST/SGOT 58 U/L (12-37); Bilirubin, Total 0.7 mg/dL (0.1-1.0); Blood Urea Nitrogen 6 mg/dL (8-24); Bun/Creatinine Ratio 9.7 (12.0-20.0); CO2, Blood 26 mmol/L (21-32); Calcium, Blood 8.9 mg/dL (8.5-10.1); Chloride, Blood 105 mmol/L (98-108); Creatinine, Blood 0.62 mg/dL (0.40-1.00); Globulin, Blood 2.8 g/dL (2.2-4.0); Glomerular Filtration Rate >60 (60-); Glucose, Blood 96 mg/dL (70-99); Potassium, Blood 4.2 mmol/L (3.5-5.5); Sodium, Blood 138 mmol/L (136-145); Total Protein, Blood 6.4 g/dL (6.4-8.2)
== END | disposition home or self-care (01) ==
LOC: LAB 10:58 → LAB SHORT 10:58
PROVIDERS: Internal Medicine Hematology & Oncology
DX: C79.51 Secondary malignant neoplasm of bone (principal)
CPT/HCPCS: 80053; 85025

== ENCOUNTER → 2020-04-26 | Outpatient (CLI) | payer OTHER ==
[2020-04-26 11:34] LABS: BASOPHILS ABSOLUTE AUTO 0.04 K/mm3 (0.00-0.23); BASOPHILS PERCENT AUTO 2 % (0-2); EOSINOPHILS ABSOLUTE AUTO 0.02 K/mm3 (0.00-0.68); EOSINOPHILS PERCENT AUTO 1 % (0-6); Hematocrit 39.2 % (33.0-51.0); Hemoglobin 12.9 g/dL (11.5-16.0); Mean Corpuscular HGB 34.5 pg (26.0-34.0); Mean Corpuscular HGB Conc 32.9 g/dL (31.5-36.5); Mean Corpuscular Volume 105 fL (80-100); Mean Platelet Volume 9.5 fL (9.1-12.4); Platelet Count 232 K/mm3 (150-400); RDW Coefficient Variation 14.9 % (11.7-14.2); RDW Standard Deviation 55.6 fL (35.1-46.3); Red Blood Cell Count 3.74 M/mm3 (3.80-5.20); White Blood Cell Count 2.29 K/mm3 (4.00-11.30)
[2020-04-26 11:45] LABS: IMMATURE GRAN ABSOLUTE AUTO 0.01 K/mm3 (0.00-0.10); IMMATURE GRAN PERCENT AUTO 0 % (0-1); LYMPHOCYTES ABSOLUTE AUTO 0.57 K/mm3 (0.84-5.20); LYMPHOCYTES PERCENT AUTO 25 % (21-46); MONOCYTES ABSOLUTE AUTO 0.14 K/mm3 (0.16-1.47); MONOCYTES PERCENT AUTO 6 % (4-13); NEUTROPHILS ABSOLUTE AUTO 1.51 K/mm3 (1.96-9.15); NEUTROPHILS PERCENT AUTO 66 % (41-73)
[2020-04-26 11:53] LABS: Alanine Aminotransfer (ALT/SGP 146 U/L (12-78); Albumin/Globulin Ratio 1.4 (0.8-1.8); Alk Phos 121 U/L (50-136); Anion Gap 8 mmol/L (6-16); Aspartate Aminotrans (AST/SGOT 173 U/L (12-37); Bilirubin, Total 0.7 mg/dL (0.1-1.0); Blood Urea Nitrogen 9 mg/dL (8-24); Bun/Creatinine Ratio 16.9 (12.0-20.0); CO2, Blood 28 mmol/L (21-32); Calcium, Blood 8.8 mg/dL (8.5-10.1); Chloride, Blood 105 mmol/L (98-108); Creatinine, Blood 0.53 mg/dL (0.40-1.00); Globulin, Blood 2.9 g/dL (2.2-4.0); Glomerular Filtration Rate >60 (60-); Glucose, Blood 105 mg/dL (70-99); Potassium, Blood 3.8 mmol/L (3.5-5.5); Sodium, Blood 141 mmol/L (136-145); Total Protein, Blood 6.9 g/dL (6.4-8.2)
== END | disposition home or self-care (01) ==
LOC: LAB 10:00 → LAB SHORT 10:00
PROVIDERS: Internal Medicine Hematology & Oncology
DX: C79.51 Secondary malignant neoplasm of bone (principal)
CPT/HCPCS: 80053; 85025

== ENCOUNTER → 2020-05-20 | Outpatient (CLI) | payer OTHER ==
[2020-05-20 13:01] LABS: BASOPHILS ABSOLUTE AUTO 0.07 K/mm3 (0.00-0.23); BASOPHILS PERCENT AUTO 2 % (0-2); EOSINOPHILS PERCENT AUTO 0 % (0-6); Hematocrit 38.1 % (33.0-51.0); Hemoglobin 12.6 g/dL (11.5-16.0); IMMATURE GRAN ABSOLUTE AUTO 0.02 K/mm3 (0.00-0.10); IMMATURE GRAN PERCENT AUTO 1 % (0-1); LYMPHOCYTES ABSOLUTE AUTO 0.65 K/mm3 (0.84-5.20); LYMPHOCYTES PERCENT AUTO 18 % (21-46); MONOCYTES ABSOLUTE AUTO 0.57 K/mm3 (0.16-1.47); MONOCYTES PERCENT AUTO 15 % (4-13); Mean Corpuscular HGB 35.2 pg (26.0-34.0); Mean Corpuscular HGB Conc 33.1 g/dL (31.5-36.5); Mean Corpuscular Volume 106 fL (80-100); Mean Platelet Volume 9.8 fL (9.1-12.4); NEUTROPHILS ABSOLUTE AUTO 2.41 K/mm3 (1.96-9.15); NEUTROPHILS PERCENT AUTO 65 % (41-73); NRBC ABSOLUTE 0.02 K/mm3 (0.00-0.02); NRBC Auto 0.5 /100 WBC (0.0-0.2); Platelet Count 307 K/mm3 (150-400); RDW Coefficient Variation 19.1 % (11.7-14.2); RDW Standard Deviation 73.6 fL (35.1-46.3); Red Blood Cell Count 3.58 M/mm3 (3.80-5.20); White Blood Cell Count 3.72 K/mm3 (4.00-11.30)
== END | disposition home or self-care (01) ==
LOC: LAB 12:54 → LAB SHORT 12:54
PROVIDERS: Internal Medicine Hematology & Oncology
DX: C79.51 Secondary malignant neoplasm of bone (principal)
CPT/HCPCS: 85025

== ENCOUNTER → 2020-06-26 | Outpatient (CLI) | payer OTHER ==
[2020-06-26 10:35] LABS: Alanine Aminotransfer (ALT/SGP 84 U/L (12-78); Albumin, Blood 3.8 g/dL (3.4-5.0); Albumin/Globulin Ratio 1.3 (0.8-1.8); Alk Phos 132 U/L (50-136); Anion Gap 8 mmol/L (6-16); Aspartate Aminotrans (AST/SGOT 152 U/L (12-37); Bilirubin, Total 0.9 mg/dL (0.1-1.0); Blood Urea Nitrogen 9 mg/dL (8-24); Bun/Creatinine Ratio 13.8 (12.0-20.0); CO2, Blood 28 mmol/L (21-32); Calcium, Blood 8.6 mg/dL (8.5-10.1); Chloride, Blood 105 mmol/L (98-108); Creatinine, Blood 0.65 mg/dL (0.40-1.00); Globulin, Blood 2.9 g/dL (2.2-4.0); Glomerular Filtration Rate >60 (60-); Glucose, Blood 102 mg/dL (70-99); Potassium, Blood 4.3 mmol/L (3.5-5.5); Sodium, Blood 141 mmol/L (136-145); Total Protein, Blood 6.7 g/dL (6.4-8.2)
== END | disposition home or self-care (01) ==
LOC: LAB 10:12 → LAB SHORT 10:12
PROVIDERS: Internal Medicine Hematology & Oncology
DX: C50.919 Malignant neoplasm of unspecified site of unspecified female breast (principal)
CPT/HCPCS: 80053

== ENCOUNTER → 2020-08-21 | Outpatient (CLI) | payer OTHER ==
[~2020-08-21] MED LIST changes: +IBRANCE125 MG PO
[2020-08-21 10:40] LABS: Alanine Aminotransfer (ALT/SGP 61 U/L (12-78); Albumin, Blood 3.6 g/dL (3.4-5.0); Albumin/Globulin Ratio 1.2 (0.8-1.8); Alk Phos 107 U/L (50-136); Anion Gap 9 mmol/L (6-16); Aspartate Aminotrans (AST/SGOT 73 U/L (12-37); Bilirubin, Total 0.4 mg/dL (0.1-1.0); Blood Urea Nitrogen 7 mg/dL (8-24); Bun/Creatinine Ratio 14.9 (12.0-20.0); CO2, Blood 25 mmol/L (21-32); Calcium, Blood 8.5 mg/dL (8.5-10.1); Chloride, Blood 112 mmol/L (98-108); Creatinine, Blood 0.47 mg/dL (0.40-1.00); Globulin, Blood 2.9 g/dL (2.2-4.0); Glomerular Filtration Rate >60 (60-); Glucose, Blood 103 mg/dL (70-99); Phosphorus, Blood 4.1 mg/dL (2.5-4.9); Potassium, Blood 3.9 mmol/L (3.5-5.5); Sodium, Blood 146 mmol/L (136-145); Total Protein, Blood 6.5 g/dL (6.4-8.2)
== END | disposition home or self-care (01) ==
LOC: OLS 10:03 → LAB SHORT 10:03
PROVIDERS: Internal Medicine Hematology & Oncology
DX: C50.412 Malignant neoplasm of upper-outer quadrant of left female breast (principal); C79.51 Secondary malignant neoplasm of bone
CPT/HCPCS: 80053; 84100

== ENCOUNTER 2020-08-27 09:13 | Day surgery (SDC) | payer OTHER ==
[~2020-08-27] VITALS: Ht 162.6 cm; Wt 79.0 kg
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
== END 2020-08-27 12:00 | disposition home or self-care (01) ==
LOC: ORSCSDS 09:13
PROVIDERS: Student in an Organized Health Care Education/Training Program
PROC: 0DB48ZX Excision of Esophagogastric Junction, Via Natural or Artificial Opening Endoscopic, Diagnostic (ICD-10-PCS; principal; 2020-08-27 11:00)
PROC: 0D758ZZ Dilation of Esophagus, Via Natural or Artificial Opening Endoscopic (ICD-10-PCS; principal; 2020-08-27 11:00)
DX: R13.10 Dysphagia, unspecified (principal); K76.0 Fatty (change of) liver, not elsewhere classified; K44.9 Diaphragmatic hernia without obstruction or gangrene; K20.90 Esophagitis, unspecified without bleeding; K22.2 Esophageal obstruction; Z79.899 Other long term (current) drug therapy
CPT/HCPCS: 88305; 88341; 88342; C1726; J2250; J2405; J2704; J7120

== ENCOUNTER → 2020-11-21 | Outpatient (CLI) | payer OTHER ==
[~2020-11-21] MED LIST changes: +Athenol325 MG PO; +BISA5EC PO; +COLACE100 MG PO; +DEXA4 PO; +DULCOLAX400 MG/5 M PO; +ENOX40I SC; +FAMO20 PO; +FENT200LOZ TD; +HYDMOR4 PO; +LORAZEPAM0.5 MG PO; +METO10 PO; +Magic Bullet10 MG PR; +Norco 7.5-3251 EACH PO; +ONDA4ODT MM; +SENN187 PO; +TURMERIC500 M2 PO; +ZOLEDRONIC IV
== END | disposition home or self-care (01) ==
LOC: PLD 11:18 → LAB SHORT 11:18
DX: C50.412 Malignant neoplasm of upper-outer quadrant of left female breast (principal)
CPT/HCPCS: 88342; 88360; 88381

== ENCOUNTER 2020-12-10 15:41 | Emergency (ER) | payer OTHER ==
[~2020-12-10] VITALS: Ht 162.6 cm; Wt 74.8 kg
[~2020-12-10 15:41] MED LIST changes: -Athenol325 MG PO; -BISA5EC PO; -COLACE100 MG PO; -DEXA4 PO; -DULCOLAX400 MG/5 M PO; -ENOX40I SC; -FAMO20 PO; -FENT200LOZ TD; -HYDMOR4 PO; -LORAZEPAM0.5 MG PO; -METO10 PO; -Magic Bullet10 MG PR; -Norco 7.5-3251 EACH PO; -ONDA4ODT MM; -SENN187 PO; -TURMERIC500 M2 PO; -ZOLEDRONIC IV
[2020-12-10] MEDS ORDERED: Norco 7.5-3251 EACH PO (19:07)
[2020-12-10] MEDS ORDERED: TURMERIC500 M2 PO (19:11)
[2020-12-10] MEDS ORDERED: ZOLEDRONIC IV (19:12)
== END 2020-12-10 22:15 | disposition home or self-care (01) ==
LOC: ER 15:41
DX: R07.89 Other chest pain (principal); Z88.1 Allergy status to other antibiotic agents; Z88.5 Allergy status to narcotic agent; Z87.891 Personal history of nicotine dependence; Z79.899 Other long term (current) drug therapy
CPT/HCPCS: 71046; 96374; 96375; 99284-25; A9270; J2405; J3010

== ENCOUNTER 2020-12-24 18:07 | Inpatient (IN) | payer OTHER ==
[~2020-12-24] VITALS: Ht 162.6 cm; Wt 74.8 kg
[~2020-12-24 18:07] MED LIST changes: +Norco 7.5-3251 EACH PO; +TURMERIC500 M2 PO; +ZOLEDRONIC IV
[2020-12-24] MEDS ORDERED: ONDA4ODT MM (18:18)
[2020-12-24 19:28] LABS: BASOPHILS ABSOLUTE AUTO 0.01 K/mm3 (0.00-0.23); BASOPHILS PERCENT AUTO 0 % (0-2); EOSINOPHILS ABSOLUTE AUTO 0.05 K/mm3 (0.00-0.68); EOSINOPHILS PERCENT AUTO 2 % (0-6); Hematocrit 32.1 % (33.0-51.0); Hemoglobin 10.5 g/dL (11.5-16.0); IMMATURE GRAN ABSOLUTE AUTO 0.02 K/mm3 (0.00-0.10); IMMATURE GRAN PERCENT AUTO 1 % (0-1); LYMPHOCYTES ABSOLUTE AUTO 0.51 K/mm3 (0.84-5.20); LYMPHOCYTES PERCENT AUTO 20 % (21-46); MONOCYTES ABSOLUTE AUTO 0.24 K/mm3 (0.16-1.47); MONOCYTES PERCENT AUTO 9 % (4-13); Mean Corpuscular HGB 32.4 pg (26.0-34.0); Mean Corpuscular HGB Conc 32.7 g/dL (31.5-36.5); Mean Corpuscular Volume 99 fL (80-100); Mean Platelet Volume 9.1 fL (9.1-12.4); NEUTROPHILS ABSOLUTE AUTO 1.71 K/mm3 (1.96-9.15); NEUTROPHILS PERCENT AUTO 67 % (41-73); Platelet Count 141 K/mm3 (150-400); RDW Coefficient Variation 12.6 % (11.7-14.2); RDW Standard Deviation 45.6 fL (35.1-46.3); Red Blood Cell Count 3.24 M/mm3 (3.80-5.20); White Blood Cell Count 2.54 K/mm3 (4.00-11.30)
[2020-12-24 19:45] LABS: Alanine Aminotransfer (ALT/SGP 41 U/L (12-78); Albumin, Blood 3.1 g/dL (3.4-5.0); Albumin/Globulin Ratio 0.8 (0.8-1.8); Alk Phos 126 U/L (50-136); Anion Gap 12 mmol/L (6-16); Aspartate Aminotrans (AST/SGOT 63 U/L (12-37); Bilirubin, Total 0.4 mg/dL (0.1-1.0); Blood Urea Nitrogen 4 mg/dL (8-24); Bun/Creatinine Ratio 8.2 (12.0-20.0); CO2, Blood 23 mmol/L (21-32); Calcium, Blood 8.9 mg/dL (8.5-10.1); Chloride, Blood 103 mmol/L (98-108); Creatinine, Blood 0.49 mg/dL (0.40-1.00); Globulin, Blood 3.8 g/dL (2.2-4.0); Glomerular Filtration Rate >60 (60-); Glucose, Blood 90 mg/dL (70-99); Sodium, Blood 138 mmol/L (136-145); Total Protein, Blood 6.9 g/dL (6.4-8.2)
[2020-12-24 19:46] LABS: International Normalized Ratio 0.99; Prothrombin Time Results 10.6 Sec (9.7-11.5)
--- NOTE | 2020-12-24 23:02 | NUR ---
55 YR OLD FEMALE ADMITTED TO FLOOR FROM THE ED WITH DX OF CLOSED RIGHT HIP FX. WILL BE NPO FOR MD REVIEW OF POSSIBLE SURGERY TOMORROW. ORIETED TO CALL LIGHT. CALL LIGHT IN REACH.
--- NOTE | 2020-12-25 04:42 | NUR ---
SHIFT SUMMARY ADMITTED TO FLOOR LAST EVENING WITH CLOSED FX OF RIGHT HIP. NPO (EXCEPT PO PAIN MED X 1) SINCE MIDNIGHT FOR POSSIBEL PROCEDURE THIS AM. IVF OF NS AT 100 ML/HR. PAIN MEDS ADMIN FOR HIP PAIN. BEDREST WITH LUZ DRAINING. CALL LIGHT IN REACH.
[2020-12-25 05:04] LABS: Prothrombin Time Results 10.7 Sec (9.7-11.5)
[2020-12-25 05:20] LABS: BASOPHILS ABSOLUTE AUTO 0.01 K/mm3 (0.00-0.23); BASOPHILS PERCENT AUTO 0 % (0-2); EOSINOPHILS ABSOLUTE AUTO 0.03 K/mm3 (0.00-0.68); EOSINOPHILS PERCENT AUTO 1 % (0-6); Hemoglobin 10.3 g/dL (11.5-16.0); IMMATURE GRAN ABSOLUTE AUTO 0.01 K/mm3 (0.00-0.10); IMMATURE GRAN PERCENT AUTO 0 % (0-1); LYMPHOCYTES ABSOLUTE AUTO 0.56 K/mm3 (0.84-5.20); LYMPHOCYTES PERCENT AUTO 21 % (21-46); MONOCYTES PERCENT AUTO 11 % (4-13); Mean Corpuscular HGB 32.1 pg (26.0-34.0); Mean Corpuscular HGB Conc 32.2 g/dL (31.5-36.5); Mean Corpuscular Volume 100 fL (80-100); Mean Platelet Volume 9.2 fL (9.1-12.4); NEUTROPHILS ABSOLUTE AUTO 1.78 K/mm3 (1.96-9.15); NEUTROPHILS PERCENT AUTO 66 % (41-73); Platelet Count 135 K/mm3 (150-400); RDW Coefficient Variation 12.7 % (11.7-14.2); RDW Standard Deviation 46.6 fL (35.1-46.3); Red Blood Cell Count 3.21 M/mm3 (3.80-5.20); White Blood Cell Count 2.69 K/mm3 (4.00-11.30)
[2020-12-25 05:44] LABS: Alanine Aminotransfer (ALT/SGP 35 U/L (12-78); Albumin, Blood 2.8 g/dL (3.4-5.0); Albumin/Globulin Ratio 0.8 (0.8-1.8); Alk Phos 118 U/L (50-136); Anion Gap 10 mmol/L (6-16); Aspartate Aminotrans (AST/SGOT 52 U/L (12-37); Bilirubin, Total 0.6 mg/dL (0.1-1.0); Blood Urea Nitrogen 5 mg/dL (8-24); Bun/Creatinine Ratio 10.3 (12.0-20.0); CO2, Blood 23 mmol/L (21-32); Calcium, Blood 8.2 mg/dL (8.5-10.1); Chloride, Blood 105 mmol/L (98-108); Creatinine, Blood 0.48 mg/dL (0.40-1.00); Globulin, Blood 3.6 g/dL (2.2-4.0); Glomerular Filtration Rate >60 (60-); Glucose, Blood 90 mg/dL (70-99); Potassium, Blood 3.9 mmol/L (3.5-5.5); Sodium, Blood 138 mmol/L (136-145); Total Protein, Blood 6.4 g/dL (6.4-8.2)
[2020-12-25 10:51] LABS: Influenza A, PCR NEGATIVE (NEGATIVE); Influenza B, PCR NEGATIVE (NEGATIVE); Resp Syncytial Virus, PCR NEGATIVE (NEGATIVE); SARS-Cov-2 (COVID-19) PCR, MMC NEGATIVE (NEGATIVE)
--- NOTE | 2020-12-25 14:03 | NUR ---
THE PATIENT WAS BROUGHT TO D/S FOR HER PROCEDURE. History, Chart, Medications and Allergies reviewed before start of procedure.Lungs clear T/O to Auscultation. Patient confirms NPO status and agrees with scheduled surgery. Pre-Op teaching done. Pt verbalizes understanding. Patient States Post-Procedure ride home has been arranged.
--- NOTE | 2020-12-25 14:25 | NUR ---
RECEIVED REPORT FROM NICK KAUFMAN RN. CHECKED ALL PREOP INSTRUCTIONS. PT READY TO GO TO OR.
--- NOTE | 2020-12-25 15:27 | NUR ---
12/25/20 1527 Harmeet Mandel PATIENT ARRIVED TO OR WITH LUZ CATH IN PLACE
--- NOTE | 2020-12-25 20:14 | NUR ---
a+o, returned from hip surgery in a good mood, dressings cdi and no s/sx of infection, call light in reach, stated the pain was decreasing but during bsr asked the noc nurse for pain medication when it was available, at that time we went over the medication that surgery had prescribed and not given to her while she was with them and they became due, saline locked on rm air, she came back from surgery on 02 but her stats were 99% on 3L, reduced it and finally removved it when she was able to stay well above 92% after each reduction, currently sitting up watching tv having finished her dinner, surgery had left her npo dispite being asked to change it, her hospitalist said to go with a regular diet as long as there was no indication not to.
--- NOTE | 2020-12-25 22:23 | NUR ---
1999 REPORT RECEIVED FROM NELI RASHID; PTS RIGHT HIP AND DISTAL THIGH LATERAL FOAM DRESSING DRY AND INTACT; ALERT AND ORIENTED X 4.
--- NOTE | 2020-12-26 05:07 | NUR ---
SHIFT SUMMARY: 55 Y/O FEMALE RESTED COMFORTABLY ALL SHIFT; PTS RIGHT HIP FOAM DRESSING DRY AND INTACT; PT ABLE DORSIFLEX RIGHT FOOT; PT C/O RIGHT HIP PAIN 8/10 WITH NORCO 5/325MG TWO TABLETS GIVEN THREE TIMES WITH PAIN RELIEF FELT; LUZ CATHETER DRAINING CLEAR YELLOW FLUID; ALERT AND ORIENTED X 4; BED ALARM APPLIED FOR SAFETY, BED LOW POSITION WITH CALL LIGHT AT SIDE.
[2020-12-26 05:48] LABS: BASOPHILS PERCENT AUTO 0 % (0-2); EOSINOPHILS PERCENT AUTO 0 % (0-6); Hematocrit 32.5 % (33.0-51.0); Hemoglobin 10.3 g/dL (11.5-16.0); IMMATURE GRAN ABSOLUTE AUTO 0.01 K/mm3 (0.00-0.10); IMMATURE GRAN PERCENT AUTO 0 % (0-1); LYMPHOCYTES ABSOLUTE AUTO 0.25 K/mm3 (0.84-5.20); LYMPHOCYTES PERCENT AUTO 10 % (21-46); MONOCYTES ABSOLUTE AUTO 0.03 K/mm3 (0.16-1.47); MONOCYTES PERCENT AUTO 1 % (4-13); Mean Corpuscular HGB 31.9 pg (26.0-34.0); Mean Corpuscular HGB Conc 31.7 g/dL (31.5-36.5); Mean Corpuscular Volume 101 fL (80-100); Mean Platelet Volume 9.7 fL (9.1-12.4); NEUTROPHILS ABSOLUTE AUTO 2.28 K/mm3 (1.96-9.15); NEUTROPHILS PERCENT AUTO 89 % (41-73); Platelet Count 128 K/mm3 (150-400); RDW Coefficient Variation 12.4 % (11.7-14.2); Red Blood Cell Count 3.23 M/mm3 (3.80-5.20); White Blood Cell Count 2.57 K/mm3 (4.00-11.30)
[2020-12-26 06:08] LABS: Anion Gap 9 mmol/L (6-16); Blood Urea Nitrogen 7 mg/dL (8-24); Bun/Creatinine Ratio 13.9 (12.0-20.0); CO2, Blood 24 mmol/L (21-32); Calcium, Blood 8.4 mg/dL (8.5-10.1); Chloride, Blood 106 mmol/L (98-108); Glomerular Filtration Rate >60 (60-); Glucose, Blood 215 mg/dL (70-99); Magnesium, Blood 1.8 mg/dL (1.6-2.4); Potassium, Blood 3.9 mmol/L (3.5-5.5); Sodium, Blood 139 mmol/L (136-145)
--- NOTE | 2020-12-26 19:36 | NUR ---
a+o able to use call light, bed in low position, pain meds adjusted to provide more even coverage, saline locked, rm air for whole shift, with oximeter showing 02 above 90%, bsr shared with noc nurse and pt, cooperative with care and willing to work with therapy
--- NOTE | 2020-12-26 23:59 | NUR ---
1939 PT RESTING COMFORTABLY IN BED; RIGHT HIP AQUACELL DRESSING DRY AND INTACT.
--- NOTE | 2020-12-27 03:25 | NUR ---
SHIFT SUMMARY: 55 Y/O FEMALE RESTED COMFORTABLY ALL SHIFT; PT ALERT AND ORIENTED X 4; PTS RIGHT HIP AQUACELL DRESSINGS ARE DRY AND INTACT; C/O RIGHT HIP PAIN RATED 7/10 WITH NORCO 5/325 X 2 TABLETS GIVEN WITH RELIEF FELT; LUZ DRAINING CLEAR YELLOW FLUID; BED LOW POSITION WITH CALL LIGHT AT SIDE.
[2020-12-27 12:16] LABS: Influenza A, PCR NEGATIVE (NEGATIVE); Influenza B, PCR NEGATIVE (NEGATIVE); Resp Syncytial Virus, PCR NEGATIVE (NEGATIVE); SARS-Cov-2 (COVID-19) PCR, MMC NEGATIVE (NEGATIVE)
[2020-12-27] MEDS ORDERED: METO10 PO (14:25)
[2020-12-27] MEDS ORDERED: Athenol325 MG PO (14:28)
[2020-12-27] MEDS ORDERED: BISA5EC PO (14:29)
[2020-12-27] MEDS ORDERED: Magic Bullet10 MG PR (14:30)
[2020-12-27] MEDS ORDERED: COLACE100 MG PO (14:31)
[2020-12-27] MEDS ORDERED: FAMO20 PO (14:32)
[2020-12-27] MEDS ORDERED: ENOX40I SC (14:32)
[2020-12-27] MEDS ORDERED: SENN187 PO (14:33)
--- NOTE | 2020-12-27 15:35 | NUR ---
PATIENT DISCHARGE: PATIENT DISCHARGED / XFR TO SNF ([facility]) THIS SHIFT. MEDICATION RECONCILIATION COMPLETED; MED LIST PROVIDED IN FACILITY DISCHARGE PACKET. PATIENT DEPARTED MEDICAL FLOOR VIA [facility] WITH WHEELCHAIR AT 1509. REPORT CALLED TO NELI HOWARD, AT .
== END 2020-12-27 15:08 | DRG 480 ==
LOC: ER 18:07 → MEDS 22:50 → ENPENDDIS 12-27 11:46 → MEDS 12-27 15:08
PROVIDERS: Emergency Medicine; Orthopaedic Surgery; ADMIT Internal Medicine
PROC: 0QH634Z Insertion of Internal Fixation Device into Right Upper Femur, Percutaneous Approach (ICD-10-PCS; principal; 2020-12-25 16:15)
DX: M84.551A Pathological fracture in neoplastic disease, right femur, initial encounter for fracture (principal); D61.810 Antineoplastic chemotherapy induced pancytopenia; C79.51 Secondary malignant neoplasm of bone; Z20.822 Contact with and (suspected) exposure to COVID-19; C50.912 Malignant neoplasm of unspecified site of left female breast; K76.0 Fatty (change of) liver, not elsewhere classified; E87.6 Hypokalemia; G89.3 Neoplasm related pain (acute) (chronic); M51.26 Other intervertebral disc displacement, lumbar region; T45.1X5A Adverse effect of antineoplastic and immunosuppressive drugs, initial encounter; F10.21 Alcohol dependence, in remission; Z79.899 Other long term (current) drug therapy; Z79.891 Long term (current) use of opiate analgesic; Z88.5 Allergy status to narcotic agent; Z88.3 Allergy status to other anti-infective agents; Z87.891 Personal history of nicotine dependence
CPT/HCPCS: 0241U; 36415; 51702; 71045; 73502; 73700; 76377; 80048; 80053; 83735; 85025; 85610; 85730; 86850; 86900; 86901; 94762; 96361-59; 96374-59; 96375-59; 96376-59; 97110; 97162; 97166; 97530; 97535; 99285-25; A9270; C1713; C1769; J0690; J1100; J1170; J1644; J1650; J1885; J2250; J2405; J2704; J3010; J7030; J7120

== ENCOUNTER 2021-03-20 09:16 | Emergency (ER) | payer OTHER, MEDICARE ==
[~2021-03-20] VITALS: Ht 162.6 cm; Wt 68.0 kg
[~2021-03-20 09:16] MED LIST changes: +Athenol325 MG PO; +BISA5EC PO; +COLACE100 MG PO; +ENOX40I SC; +FAMO20 PO; +METO10 PO; +Magic Bullet10 MG PR; +ONDA4ODT MM; +SENN187 PO
[2021-03-20] MEDS ORDERED: FENT200LOZ TD (09:42)
[2021-03-20] MEDS ORDERED: HYDMOR4 PO (09:43)
[2021-03-20] MEDS ORDERED: LORAZEPAM0.5 MG PO (09:44)
== END 2021-03-20 11:54 | disposition home or self-care (01) ==
LOC: ER 09:16
DX: M19.011 Primary osteoarthritis, right shoulder (principal); Z79.899 Other long term (current) drug therapy; Z87.891 Personal history of nicotine dependence
CPT/HCPCS: 73030; 99284-25

== ENCOUNTER 2021-04-01 08:55 | Inpatient (IN) | payer MEDICARE, OTHER ==
[~2021-04-01] VITALS: Ht 162.6 cm; Wt 65.3 kg
[~2021-04-01 08:55] MED LIST changes: +FENT200LOZ TD; +HYDMOR4 PO; +LORAZEPAM0.5 MG PO
[2021-04-01 10:02] LABS: BASOPHILS ABSOLUTE AUTO 0.04 K/mm3 (0.00-0.23); BASOPHILS PERCENT AUTO 1 % (0-2); EOSINOPHILS ABSOLUTE AUTO 0.03 K/mm3 (0.00-0.68); EOSINOPHILS PERCENT AUTO 1 % (0-6); Hematocrit 31.3 % (33.0-51.0); Hemoglobin 9.6 g/dL (11.5-16.0); IMMATURE GRAN ABSOLUTE AUTO 0.12 K/mm3 (0.00-0.10); IMMATURE GRAN PERCENT AUTO 3 % (0-1); LYMPHOCYTES ABSOLUTE AUTO 0.54 K/mm3 (0.84-5.20); LYMPHOCYTES PERCENT AUTO 13 % (21-46); MONOCYTES ABSOLUTE AUTO 0.53 K/mm3 (0.16-1.47); MONOCYTES PERCENT AUTO 13 % (4-13); Mean Corpuscular HGB Conc 30.7 g/dL (31.5-36.5); Mean Corpuscular Volume 108 fL (80-100); NEUTROPHILS ABSOLUTE AUTO 2.76 K/mm3 (1.96-9.15); NEUTROPHILS PERCENT AUTO 69 % (41-73); NRBC ABSOLUTE 0.07 K/mm3 (0.00-0.02); NRBC Auto 1.7 /100 WBC (0.0-0.2); Platelet Count 216 K/mm3 (150-400); RDW Coefficient Variation 19.4 % (11.7-14.2); RDW Standard Deviation 76.6 fL (35.1-46.3); Red Blood Cell Count 2.91 M/mm3 (3.80-5.20); White Blood Cell Count 4.02 K/mm3 (4.00-11.30)
[2021-04-01 10:11] LABS: Anion Gap 11 mmol/L (6-16); Blood Urea Nitrogen 5 mg/dL (8-24); Bun/Creatinine Ratio 10.6 (12.0-20.0); CO2, Blood 25 mmol/L (21-32); Calcium, Blood 9.3 mg/dL (8.5-10.1); Chloride, Blood 98 mmol/L (98-108); Creatinine, Blood 0.47 mg/dL (0.40-1.00); Glomerular Filtration Rate >60 (60-); Glucose, Blood 95 mg/dL (70-99); Potassium, Blood 3.8 mmol/L (3.5-5.5); Sodium, Blood 134 mmol/L (136-145)
[2021-04-01 10:13] LABS: International Normalized Ratio 1.04; Prothrombin Time Results 11.2 Sec (9.7-11.5)
[2021-04-01 10:42] LABS: SARS-Cov-2 (COVID-19) PCR, MMC NEGATIVE (NEGATIVE)
[2021-04-01] MEDS ORDERED: DULCOLAX400 MG/5 M PO (11:07)
--- NOTE | 2021-04-01 11:30 | NUR ---
History, Chart, Medications and Allergies reviewed before start of procedure. Lungs clear T/O to Auscultation. Pre-Op teaching done. Pt verbalizes understanding. Patient confirms NPO status and agrees with scheduled surgery. Patient States Post-Procedure ride home has been arranged.
--- NOTE | 2021-04-01 15:05 | NUR ---
PT ARRIVED TO UNIT AT 1540. AA0X4, ON 4L OXYGEN VIA NC. SHE REPORTS SHORTNESS OF BREATH BUT STATES SHE IS NORMALLY SOB. LEFT LEG HAS 3 SURGICAL SITES WITH PRESSURE TAPE BULKY DRESSING ON, CDI. FULL SENSATION IN EXTREMETIES AND MOVES WELL. SHE REPORTS NO PAIN IN REST OF BODY BUT TOLERABLE PAIN IN HER LEFT LEG. HELPED PT REPOSITION. HER RIGHT EYE IS CLOSED AND DROOPY, DIFFICULT FOR HER TO OPEN. SHE STATES THIS IS NORMAL FOR HER. STATES VISION IS CLEAR IN EACH EYE IF THE OTHER IS CLOSED BUT DOUBLE VISION WHEN BOTH OPEN. ARM STRENGTH EQUAL ON BOTH SIDES. PT REQUESTED A CATHETER TO BE INSERTED, EDUCATED PT ON INFECTION RISK AND GOAL TO TRY BED FONTENOT. SCD'S ON, CALL LIGHT IN REACH. PT EDUCATED ON USE.
--- NOTE | 2021-04-01 15:26 | NUR ---
04/01/21 1526 Nena Novak VERIFICATIONS: EDIT CHART.
--- NOTE | 2021-04-01 16:16 | NUR ---
PT REPORTED THAT SHE TAKES 8MG PO DILAUDID EVERY 4 HOURS FOR PAIN MANAGEMENT. CONSULTED HOSPITALIST DR LAND FOR PAIN MANAGEMENT. DR ROBERSON AWARE OF CONSULT.
--- NOTE | 2021-04-01 17:25 | NUR ---
SHIFT SUMMARY S/P R HIP REPAIR. PT AA0X4. DRESSING CDI. PT ABLE TO TRANSFER TO COMMODE WITH FWW AND GB. SITTING UP IN CHAIR. REPORTS SLEEPING IN CHAIR AT BASELINE. CURRENTLY ON 4L OXYGEN, TITRATING DOWN. PT REPORTS NONE AT BASELINE. PT HAS CHRONIC PAIN MANAGEMENT ISSUES, HOSPITALIST CONSULTED FOR PAIN MANAGEMENT. PT VOIDING WELL. TOLERATING PO WELL. WILL CONTINUE TO MANAGE PAIN AND WORK WITH THERAPY TOMORROW.
--- NOTE | 2021-04-01 17:50 | NUR ---
PT REMOVES OXYGEN WHILE ATTEMPTING TO EAT. DESATS TO MID 70'S - 80'S. RECOVERS QUICKLY ONCE OXYGEN PLACED BACK IN NOSE. GOT UPSET WITH THIS RN WHEN HE ASKED HER TO KEEP OXYGEN IN THE NOSE. STATED SHE JUST WOULD NOT EAT IF SHE HAD TO HAVE OXYGEN IN HER NOSE. PT CURRENTLY SITTING UP IN HER RECLINER GOING THROUGH HER BELONGINGS.
--- NOTE | 2021-04-02 04:00 | NUR ---
A/OX4. VSS ON 4Lo2 VIA NASAL CANNULA. PT REMOVED NC, DESAT TO 78%. EDUCATION PROVIDED, PT COMPLIANT W/ NASAL CANNULA REMAINDER OF SHIFT. BP SOFT, PT ASYMPTOMATIC. CONTINOUS FLUIDS INFUSING. PT DENIES CP. C/O SHUKLA. PAIN MANAGED WELL W/ HOME DOSE OF 8MG PO DILAUDID. PT HALLUCINATING AND STATED SHE IS SEEING CATS. PT VERBALIZED SHE IS AWARE THEY ARE NOT IN THE ROOM AND STATED THIS HAPPENS TO HER WHILE SHE IS AT HOME WELL. CONTINOUS PULSE OX IN PLACE. PT SLEEPING UP IN RECLINER CHAIR. USING CALL LIGHT TO MAKE NEEDS KNOWN.
--- NOTE | 2021-04-02 08:02 | NUR ---
dr boudreaux by to see pt changed dressing x3 aqucel pt reports pain 05/10 stated she is having trouble breathing also worried about the next time she gets up to the [facility] stated she really had severe sob
[2021-04-02] MEDS ORDERED: ENOX40I SC (10:46)
--- NOTE | 2021-04-02 11:30 | NUR ---
ot by to see pt earlier worked with physical therapy notified s/s awaiting hosp rounding
--- NOTE | 2021-04-02 14:45 | NUR ---
pt repositioned in the chair has dec appeatite will cont ivf
--- NOTE | 2021-04-02 17:44 | NUR ---
Initial Pal Care visit after case conf with pt's CM, LUCHO and RN with update on status and care plan obtained. Pt is agreeable to my visit. She is dyspnic with conversation and had to stop, slow speech down, deep breathe a few times during my visit. She is wearing O2 via NC @ 4L/min. She has not been O2 dep prior but does report significant SOB for the past two months. Pt has metastatic invasive ductal breast cancer and was on hospice with [facility] hospice prior to this admission. Pt reports that she disenrolled so that she could have surgical pinning/tx of pathological fx. This is the second pathological femur/hip fx for pt with bony metastasis. Pt states the procedure has not improved her level of pain significantly. We reviewed her goals and she states she plans to go back on hospice in the near future but wants to go to SNF and "see how it goes". I voiced concern that it may not go well as her cancer is progressing and dyspnea is likely due to metastatic cancer. Pt understands this. Her primary objection to going back on hospice now is the lack of support at home or place to be where she will get the care she needs. Pt states she is not a , when I asked. She states she does have medicaid and we discussed possibility that medicaid may be of assistance with hiring cg apartment maintenance technician or placement if needed for hospice care. I reviewed code status with pt and she states she does not want CPR or intubation and her POLST at home reflects this. I spoke with and RN to report on my visit. VM left for Vicky HAMMOND. VO obtained and entered to change code status from full code to DNR per pt's wishes. Plan to revisit pt tomorrow for s/s management. Pt states she does not tolerate many pain medications and she is reluctant to take them and "become addicted". Discussed need for good pain management and good rest periods to improve s/s and quality of life at this time.
--- NOTE | 2021-04-02 18:25 | NUR ---
PALLATIVE CARE BY TO SEE PT EARLIER
--- NOTE | 2021-04-03 05:17 | NUR ---
SHIFT SUMMARY LYING IN HIGH FOWLERS WITH EYES CLOSED. ASKED FOR SOMETHING TO HELP HER BREATHE. WHEN ASKED WHAT SHE DOES AT HOME, SHE STATED THAT SHE JUST LEANS FORWARD AND TAKES HER DILAUDID. PRN DILAUDID GIVEN FOR PAIN 05/10. CONTACTED AND ORDERS RECEIVED. RT AT BEDSIDE TO GIVE PRN TREATMENT FOR SOB. LEFT HIP AQUACEL IS C/D/I, DENIES N/T. MEDICATED FOR PAIN PER EMAR. LEFT AC SL PIV IS PATENT, FLUSHING WITH EASE. DIONNE'S/SCD'S TO BLE. NO FURTHER SIGNIFICANT CHANGES NOTED. DENIES PAIN, DISCOMFORT OR FURTHER NEEDS AT THIS TIME. SAFETY MEASURES IN PLACE. WILL CONTINUE TO MONITOR AND ADDRESS NEEDS THEY ARISE AND GIVE HAND OFF TO ONCOMING SHIFT USING SBAR.
--- NOTE | 2021-04-03 10:50 | NUR ---
0720- RECVD REPORT FROM PREVIOUS SHIFT RN. PT SITTING UP IN CHAIR, CALL LIGHT WITHIN REACH. 0840-PROVIDED PT WITH ANALGESIA PER MAR. PT STATES SHE HAS BACK, LLE, AND CHEST PAIN. PT REQUESTS MODIFICATION OF ANXIOLYTIC AND ANALGESIA PER DR TURNER ORDERS. HOSPITALIST WILL BE NOTIFIED UPON ROUNDING 1045-PT AWAKENED FROM A NAP CONFUSED; IS REORIENTED; WILL CONTINUE TO MONITOR
--- NOTE | 2021-04-03 16:30 | NUR ---
upon entering room, pt removes fentanyl patch from underneath stomach fold, requests this RN call Dr Mcmahan's office, requests another prescription. called Dr Mcmahan's office, spoke with Mars there who relays pt has been discharged from their service to hospital as of 02/07, continuing on hospice. [facility] called and reported the patient revoked hospice services on 03/31.will notify hospitalist of updates. per dr mcmahan, pt is also alcoholic
--- NOTE | 2021-04-03 17:00 | NUR ---
Dr Sherman notified of pt's request and reports from [facility]/dr Mcmahan's office. pt notified that Dr Sherman will be managing the orders. Pt encouraged to consider returning on hospice, and encouraged to consider a hospice facility/senior living care placement for hospice.
--- NOTE | 2021-04-04 04:51 | NUR ---
SHIFT SUMMARY POD3 TNF . NO ACUTE CHANGES OVERNIGHT. PT SLEPT SOME LAST NIGHT. SHE WAS ON BEDSIDE COMMODE SEVERAL TIMES T/O SHIFT. VOIDING WITHOUT DIFFICULTY. PT HAD 1 SMALL BM. REQUESTED HER ANXIETY MEDICATION AT BEDTIME. PT REPORTS PAIN 6/10 PAIN LEVEL ON L SIDE HIP. PAIN MANAGED WITH DILAUDID 8MG PO. L HIP TO UPPER L THIGH HAS 3 AQUACEL DRESSING, 2 OF THESE DRESSING HAS SOME SHADOWING BUT THEY ARE CDI. SHE IS ON 4L O2, N/C SATURATING AT 90-93%. LEFT SIDE LUNG SOUNDS COARSE. PT WITH 1 MIN ASSIST AT [facility]. WAITING FOR CARE MANAGEMENT TEAM ABOUT SNF PLACEMENT PER PT REQUEST AND HOSPICE CARE IS BEING DISCUSSED BY THE HEALTHCARE TEAM. CALL LIGHT WITHIN IN. WILL PROVIDE REPORT TO ONCOMING NURSE.
[2021-04-04 12:16] LABS: SARS-Cov-2 (COVID-19) PCR, MMC NEGATIVE (NEGATIVE)
--- NOTE | 2021-04-04 14:29 | NUR ---
DISCHARGE NOTE: POD 2 LEFT HIP REPAIR PATIENT IS ALERT AND ORIENTED X4. VS ARE WNL AND IS ON 5L NC DUE TO CANCER IN HER LUNGS. PAIN IS MANAGED WITH PO DILAUDID AND ATIVAN. THE 3 AQUACELS ON HER LEFT HIP ARE C/D/I. DENIES NUMBNESS AND TINGLING. 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 PATIENT IS ALSO TOE TOUCH WT BEARING ON THE LEFT LEG. PATIENT IS VOIDING, HAVING BMS, AND IS TOLERATING PO INTAKE. THIS NURSE GAVE REPORT TO [facility] NURSE CHINO. TRANSPORT WILL BE PICKING HER UP AT AROUND 1530 TO TAKE HER TO [facility]. ITEMS IN HER ROOM ARE GATHERED.
--- NOTE | 2021-04-04 15:54 | NUR ---
PATIENT JUST LEFT WITH TRANSPORT TO [facility]. SHE HAD HER ITEMS FROM THE ROOM WITH HER. IV WAS DISCONTINUED AND WAS WNL. SHE WAS BEING WHEELCHAIRED OUT BY TRANSPORT. PATIENT WAS VERY PLEASANT AND READY TO GO. ALERT AND ORIENTED X4. VS ARE WNL AND IS ON 4 LITERS OXYGEN NC.
== END 2021-04-04 15:54 | DRG 480 ==
LOC: SURS 08:55 → PRE IP 12:30 → SURS 14:50
PROVIDERS: Internal Medicine; ADMIT Orthopaedic Surgery
PROC: 0QH736Z Insertion of Intramedullary Internal Fixation Device into Left Upper Femur, Percutaneous Approach (ICD-10-PCS; principal; 2021-04-01 12:30)
DX: M84.552A Pathological fracture in neoplastic disease, left femur, initial encounter for fracture (principal); J96.01 Acute respiratory failure with hypoxia; C78.00 Secondary malignant neoplasm of unspecified lung; C78.7 Secondary malignant neoplasm of liver and intrahepatic bile duct; C79.51 Secondary malignant neoplasm of bone; F11.20 Opioid dependence, uncomplicated; Z20.822 Contact with and (suspected) exposure to COVID-19; C50.912 Malignant neoplasm of unspecified site of left female breast; T41.45XA Adverse effect of unspecified anesthetic, initial encounter; T40.605A Adverse effect of unspecified narcotics, initial encounter; G89.4 Chronic pain syndrome; Z98.890 Other specified postprocedural states; Z88.6 Allergy status to analgesic agent; Z88.1 Allergy status to other antibiotic agents; Z88.5 Allergy status to narcotic agent; Z88.8 Allergy status to other drugs, medicaments and biological substances
CPT/HCPCS: 80048; 85025; 85610; 85730; 94640; 94667; 94668; 94762; 97110; 97162; 97166; 97535; A9270; C1713; C1769; J0690; J1100; J1170; J1650; J1885; J2250; J2370; J2405; J2704; J3010; J3370; J7120; U0004

== ENCOUNTER 2021-05-23 02:19 | Emergency (ER) | payer MEDICARE, OTHER ==
[~2021-05-23] VITALS: Ht 162.6 cm; Wt 56.2 kg
[~2021-05-23 02:19] MED LIST changes: +DULCOLAX400 MG/5 M PO
[2021-05-23] MEDS ORDERED: DEXA4 PO (03:59)
== END 2021-05-23 05:59 | disposition home or self-care (01) ==
LOC: ER 02:19
DX: R06.00 Dyspnea, unspecified (principal); Z51.5 Encounter for palliative care; Z88.5 Allergy status to narcotic agent; Z88.1 Allergy status to other antibiotic agents; Z88.8 Allergy status to other drugs, medicaments and biological substances; Z79.899 Other long term (current) drug therapy; Z87.891 Personal history of nicotine dependence
CPT/HCPCS: 36415; 93005; 93010; 94640; 96374; 99285-25; J1170